=== PATIENT | male | born 2000 | race Caucasian/White ===

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

== ENCOUNTER 2021-04-20 11:22 | Emergency (ER) | payer OTHER, BC ==
[2021-04-20 11:46] VITALS: BP 146/76; PULSE 66
--- NOTE | 2021-04-20 12:04 | EDM.PDOC ---
ED HPI GENERAL MEDICAL PROBLEM - General Stated Complaint: SEVERE RIB PAIN/SOB Time Seen by Provider: 04/20/21 11:23 Source of Information: Reports: Patient History Limitations: Reports: No Limitations - History of Present Illness INITIAL COMMENTS - FREE TEXT/NARRATIVE: Patient presents with right rib/chest pain. Two days ago he slipped on ice and fell landing with right lateral chest on a post. Now he has sharp pains sometimes with breathing. He went to a chiropractor who sent him for xrays. He came to ER when he became short of breath while her for xray. This happened while at work. - Related Data Allergies Allergy/AdvReac Type Severity Reaction Status Date / Time amoxicillin [Amoxicillin] Allergy Rash Verified 04/20/21 11:43 erythromycin base Allergy Rash Verified 04/20/21 11:43 [Erythromycin Base] milk Allergy Other Verified 04/20/21 11:43 Home Meds: Home Meds Albuterol [Ventolin HFA] 1 puff INH ASDIRECTED PRN 03/27/14 [History] Fluticasone Propion/Salmeterol [Advair 500-50 Diskus] 1 puff INH DAILY 03/27/14 [History] Albuterol Sulfate 2.5 mg IH TID #60 ml 05/23/14 [Rx] Cetirizine [ZyrTEC] 10 mg PO DAILY 07/08/19 [History] Montelukast [Singulair] 10 mg PO DAILY 07/08/19 [History] Sertraline HCl [Zoloft] 200 mg PO DAILY 07/08/19 [History] bisacodyL [Dulcolax] 5 mg PO DAILY 07/08/19 [History] Past Medical History - Past Health History Medical/Surgical History: Denies Medical/Surgical History Respiratory History: Reports: Asthma Gastrointestinal History: Reports: Chronic Constipation Neurological History: Reports: Concussion Psychiatric History: Reports: Anxiety, Depression, PTSD Dermatologic History: Reports: Other (See Below) Other Dermatologic History: contact dermatitis chin 07/08/2019 - Past Surgical History HEENT Surgical History: Reports: Adenoidectomy, Tonsillectomy Social & Family History - Family History Family Medical History: No Pertinent Family History - Caffeine Use Caffeine Use: Reports: Soda ED ROS GENERAL - Review of Systems Review Of Systems: See Below Constitutional: Denies: Fever, Chills, Malaise, Weakness HEENT: Denies: Ear Pain, Throat Pain, Vision Change Respiratory: Reports: Shortness of Breath. Denies: Cough Cardiovascular: Reports: Chest Pain (lateral chest wall). Denies: Lightheadedness, Syncope GI/Abdominal: Denies: Abdominal Pain, Vomiting Skin: Reports: No Symptoms Neurological: Reports: No Symptoms Psychiatric: Reports: No Symptoms ED EXAM, GENERAL - Physical Exam Exam: See Below Exam Limited By: No Limitations General Appearance: Alert, WD/WN, No Apparent Distress Eye Exam: Bilateral Eye: EOMI, Normal Inspection, PERRL Ears: Normal External Exam, Hearing Grossly Normal Nose: Normal Inspection, No Blood Throat/Mouth: Normal Inspection, Normal Voice, No Airway Compromise Head: Atraumatic, Normocephalic Neck: Normal Inspection, Full Range of Motion Respiratory/Chest: No Respiratory Distress, Lungs Clear, Normal Breath Sounds, Other (He has a contusion and ecchymosis on right lateral chest wall but no crepitus or deformity on exam. Palpation is tender generally of right anterior, lateral and posterior chest wall.) Cardiovascular: Regular Rate, Rhythm, No Murmur Back Exam: Normal Inspection, Full Range of Motion. No: Paraspinal Tenderness, Vertebral Tenderness Extremities: Normal Inspection, Normal Range of Motion Neurological: Alert, Oriented, Normal Cognition, No Motor/Sensory Deficits Psychiatric: Normal Affect, Normal Mood Skin Exam: Warm, Dry, Intact, Normal Color, No Rash Course - Vital Signs Last Recorded V/S: Last Vital Signs Temp 97.4 F 04/20/21 11:46 Pulse 66 04/20/21 11:46 Resp 16 04/20/21 11:46 BP 146/76 H 04/20/21 11:46 Pulse Ox 97 04/20/21 11:46 - Re-Assessments/Exams Free Text/Narrative Re-Assessment/Exam: 04/20/21 12:04 CXR ordered by chiropractor, shows no evidence of fracture. Right lung is clear. Discussed findings and treatment plan with patient and his mother. He says he doesn't need a work note since he has the next 4 days off. We discussed that it will be natural for him to take shallow breaths due to pain with deep breathing; however it is important for him to take deep breaths several times a day. Patient discharged to home in stable condition. Departure - Departure Time of Disposition: 11:58 Disposition: Home, Self-Care 01 Condition: Good Clinical Impression: Chest wall injury Qualifiers: Encounter type: initial encounter Qualified Code(s): S29.9XXA - Unspecified injury of thorax, initial encounter - Discharge Information Instructions: Blunt Chest Trauma Referrals: Darby Wyatt MD [Primary Care Provider] - Additional Instructions: Make sure to take some deep breaths several times a day to lower risk of pneumonia. Take your Aleve 400-500 mg twice daily for 1-2 weeks. Take Tylenol 500-1000mg three times a day as needed for pain control. You can take Hydrocodone as directed when needed for additional pain control but don't drive as it will make you more drowsy and less alert. Follow up with your PCP if this isn't improving in 1-2 weeks. If worsening or you get short of breath, recheck in clinic or ER as needed. Sepsis Event Note (ED) - Evaluation Sepsis Screening Result: No Definite Risk - Focused Exam Vital Signs: Vital Signs Temp Pulse Resp BP Pulse Ox 04/20/21 11:46 97.4 F 66 16 146/76 H 97
== END 2021-04-20 12:15 | disposition home or self-care (01) ==
LOC: KA.ED 11:22
DX: S29.9XXA Unspecified injury of thorax, initial encounter (principal); Z88.0 Allergy status to penicillin; Z88.1 Allergy status to other antibiotic agents; Z91.012 Allergy to eggs; W00.0XXA Fall on same level due to ice and snow, initial encounter
CPT/HCPCS: 99283

== ENCOUNTER 2022-12-11 17:10 | Emergency (ER) | payer BC, OTHER ==
[2022-12-11 17:22] VITALS: BP 129/79; PULSE 77
== END 2022-12-11 17:55 | disposition home or self-care (01) ==
LOC: KA.ED 17:10
DX: J01.00 Acute maxillary sinusitis, unspecified (principal); J06.9 Acute upper respiratory infection, unspecified; J45.909 Unspecified asthma, uncomplicated; Z79.899 Other long term (current) drug therapy; Z88.1 Allergy status to other antibiotic agents; Z91.011 Allergy to milk products
CPT/HCPCS: 99283